=== PATIENT | female | born 1975 | race Caucasian/White ===

== ENCOUNTER 2018-04-01 11:34 | Emergency (ER) | payer OTHER ==
[2018-04-01] MEDS ORDERED: Ondansetron ODT 4 MG TAB ONE (12:17)
== END 2018-04-01 12:37 | disposition home or self-care (01) ==
LOC: ERS 11:34
DX: F11.23 Opioid dependence with withdrawal (principal); F41.9 Anxiety disorder, unspecified; K21.9 Gastro-esophageal reflux disease without esophagitis; I10 Essential (primary) hypertension; F17.210 Nicotine dependence, cigarettes, uncomplicated; Z79.899 Other long term (current) drug therapy
CPT/HCPCS: 99283; Q0162